=== PATIENT | male | born 1965 | race Caucasian/White ===

== ENCOUNTER 2016-08-02 10:35 | Day surgery (SDC) | payer BC ==
[2016-07-29 16:42] VITALS: BMI 25.7
[~2016-08-02 10:35] MED LIST: LACTATED RINGERS 1,000 ML IV SCH
[2016-08-02 11:08] VITALS: TEMP 97.7
[2016-08-02] MEDS ORDERED: PROPOFOL 10 MG/ML 20 ML VIAL IV ONE (12:31)
--- NOTE | 2016-08-02 13:02 | P.PCN ---
Date of Procedure: 08/02/16 Procedure(s) Performed: Procedure: Total colonoscopy. Preoperative diagnosis: Screening for neoplasia. Postoperative diagnosis: Mild sigmoid diverticulosis with no evidence of acute diverticulitis, strictures, polyps or cancer. Preparation: HalfLytely prep. Sedation: Was provided by anesthesia. Brief clinical history: The patient is a 50-year-old male who is referred for this evaluation for screening for neoplasia age being his risk factor. He has no abdominal complaints, bleeding or anemia. No family history of colon cancer. This would be his first colonoscopy. Procedure: With the patient on his left lateral decubitus position and after informed consent and adequate sedation, the perianal area was inspected and it did not show any fissures or fistulas. There were no masses felt on digital rectal examination. The Olympus CFQ 160L scope was then inserted in the rectum in the usual fashion and advanced to the cecum. There were a few diverticular orifices seen scattered in the sigmoid but I saw no evidence of acute diverticulitis or strictures. The mucosa appeared healthy. No polyps or tumors were seen or any other pathology. I retroflexed endoscope in the rectum before the endoscope was withdrawn. The patient tolerated the procedure well. Plan: The patient was reassured. Discussed dietary measures. He will follow up with you as planned and I recommended a repeat exam in 10 years.
[2016-08-02 13:25] VITALS: BP 116/83; PULSE 63; RESP 18
== END 2016-08-02 13:40 | disposition home or self-care (01) ==
LOC: ORWHC2ENDO 10:35
DX: Z12.11 Encounter for screening for malignant neoplasm of colon (principal); K57.30 Diverticulosis of large intestine without perforation or abscess without bleeding; E78.5 Hyperlipidemia, unspecified; J45.909 Unspecified asthma, uncomplicated; Z79.899 Other long term (current) drug therapy
CPT/HCPCS: J2704; G0121; 45378

== ENCOUNTER 2018-03-11 19:36 | Emergency (ER) | payer BC ==
[2018-03-11 19:45] VITALS: BP 157/87; PULSE 75; RESP 18; TEMP 98
--- NOTE | 2018-03-11 20:24 | ED ---
Eye Problem HPI - General Chief complaint: Eye Problems Stated complaint: Eye injury Time Seen by Provider: 03/11/18 19:49 Source: patient, RN notes reviewed, old records reviewed Mode of arrival: ambulatory Limitations: no limitations - History of Present Illness Initial comments: Dedrick is a pleasant 52-year-old male who presents emergency department today after playing with his grand daughter. He reports he was playing hadn't seek ran and fell onto the edge of the couch. Patient reports that he hit the right eye. He states that shortly afterwards he thought he noticed a crunching sound. Patient states he blew his nose due to a bloody nose in that it started to have a refill around the eye. Patient states that he has no pain with extraocular eye movements. Patient does report some pain and swelling within the eye as well as conjunctival hemorrhage. - Related Data Home Medications Medication Instructions Recorded Confirmed Multivitamin [Men's Multi-Vitamin] 1 each PO DAILY 07/29/16 07/29/16 [place]-3 Fatty Acids/Fish Oil [Fish 1 tab PO DAILY 07/29/16 07/29/16 Oil 1,000 mg Softgel] Pravastatin Sodium [Pravachol] 40 mg PO HS 07/29/16 08/02/16 Previous Rx's Medication Instructions Recorded Cephalexin [Keflex] 500 mg PO Q6HR #40 cap 03/11/18 Moxifloxacin [Vigamox 0.3%] 1 drop RIGHT EYE TID #1 bottle 03/11/18 Allergies Allergy/AdvReac Type Severity Reaction Status Date / Time No Known Allergies Allergy Verified 03/11/18 19:42 Review of Systems ROS Statement: Those systems with pertinent positive or pertinent negative responses have been documented in the HPI. ROS Other: All systems not noted in ROS Statement are negative. Past Medical History Past Medical History: Asthma Additional Past Medical History / Comment(s): Hx. of asthma as a child. Has back pain. History of Any Multi-Drug Resistant Organisms: None Reported Past Surgical History: Back Surgery, Orthopedic Surgery Past Anesthesia/Blood Transfusion Reactions: No Reported Reaction Past Psychological History: No Psychological Hx Reported Smoking Status: Never smoker Past Alcohol Use History: None Reported Past Drug Use History: None Reported - Past Family History Mother Family Medical History: No Reported History Sister(s) Family Medical History: Cancer Additional Family Medical History / Comment(s): Lung General Exam - General Exam Comments Initial Comments: Pleasant 52-year-old male. No significant distress. Limitations: no limitations General appearance: alert, in no apparent distress Head exam: Present: atraumatic, normocephalic, normal inspection Eye exam: Present: PERRL, EOMI, conjunctival injection (right), other ( Subcutaneous crepitus over the left periorbital region.). Absent: normal appearance (Conjunctival hemorrhage over the lateral aspect of the right eye.), scleral icterus, periorbital swelling Pupils: Present: normal accommodation ENT exam: Present: normal exam, mucous membranes moist, other (Tender to palpation over the right periorbital region.) Neck exam: Present: normal inspection. Absent: tenderness, meningismus, lymphadenopathy Respiratory exam: Present: normal lung sounds bilaterally. Absent: respiratory distress, wheezes, rales, rhonchi, stridor Cardiovascular Exam: Present: regular rate, normal rhythm, normal heart sounds. Absent: systolic murmur, diastolic murmur, rubs, gallop, clicks Extremities exam: Present: normal inspection, full ROM, normal capillary refill. Absent: tenderness, pedal edema, joint swelling, calf tenderness Back exam: Present: normal inspection Neurological exam: Present: alert, oriented X3, CN II-XII intact Psychiatric exam: Present: normal affect, normal mood Course Vital Signs 03/11/18 19:42 Temperature 98 F Pulse Rate 75 Respiratory 18 Rate Blood Pressure 157/87 O2 Sat by Pulse 98 Oximetry - Reevaluation(s) Reevaluation #1: 03/11/18 20:23 Dr. Luna is here to evaluate the Patient. Ocular pressure in the right eye is 26, left eye 16. He performed fluorescein eye exam and found a corneal abrasion over the right eye. Medical Decision Making - Medical Decision Making Patient 52 -year-old male states subcutaneous crepitus over the right periorbital region after falling. He hit the right eye on the edge of the couch playing hide and seek. He then blew his nose causing the crepitus. He has a corneal abrasion. Pressure in the right eye is 26. Left eye is 16. Patient was elevated by Dr. Wyatt. He recommended starting Patient on Vigamox eyedrops as well as Keflex for concern for blood fracture. He was given starter packs. CT does confirm a blood fracture with subcutaneous air. This occurred because Patient blew his nose. Discussed no further bleeding of the nose. He will follow-up with Dr. Luna tomorrow for evaluation for his abrasion. All questions answered return parameters were discussed. - Radiology Data Radiology results: report reviewed Intraorbital air bubbles consistent with acute blowout fracture of the medial wall of the right orbit. There is also blowout fracture of the median wall left orbit that may not be acute and there is preseptal soft tissue air on the right side consistent with laceration. Ethmoid and maxillary sinus mucosal thickening. Negative CT of the brain. Ethmoid and maxillary sinus mucosal thickening. Right orbital abnormalities with intraorbital air bubble seen. Soft tissue air or some anterior right orbit. Disposition Clinical Impression: Closed blow-out fracture of right orbit, Corneal abrasion Disposition: HOME SELF-CARE Condition: Good Instructions: Corneal Abrasion (ED) Additional Instructions: Follow up with primary care provider and ENT. Return to ED if any alarming signs or symptoms occur. Prescriptions: Cephalexin [Keflex] 500 mg PO Q6HR #40 cap Moxifloxacin [Vigamox 0.3%] 1 drop RIGHT EYE TID #1 bottle Is patient prescribed a controlled substance at d/c from ED?: No Referrals: Murphy Darling DO [Primary Care Provider] - 1-2 days Fabi Hay MD [STAFF PHYSICIAN] - 1-2 days Yimi Arora MD [STAFF PHYSICIAN] - 1-2 days Time of Disposition: 21:45
[2018-03-11] MEDS ORDERED: MOXIFLOXACIN HCL 0.5% DROPS 3 ML BTL RIGHT EYE STA (21:17)
[2018-03-11] MEDS ORDERED: CEPHALEXIN 500MG STARTER PACK 4 CAP BTL PO STA (21:17)
--- NOTE | 2018-03-11 21:18 | CT ---
EXAMINATION TYPE: CT brain wo con DATE OF EXAM: 03/11/2018 COMPARISON: None HISTORY: Right orbit swelling and pain. CT DLP: 1297.6 mGycm Automated exposure control for dose reduction was used. FINDINGS: Ventricles have normal size. There is no mass effect nor midline shift. There is no sign of intracran ial hemorrhage. The calvarium is intact. There is mucosal thickening in the ethmoid air cells. Right- sided intraorbital air bubbles are seen. There is soft tissue air also anterior to the right orbit. IMPRESSION: NEGATIVE CT SCAN OF THE BRAIN. ETHMOID AND MAXILLARY SINUS MUCOSAL THICKENING.. Right orbital abnorma lities as above.
--- NOTE | 2018-03-11 21:22 | CT ---
EXAMINATION TYPE: CT facial bones wo con DATE OF EXAM: 03/11/2018 COMPARISON: None HISTORY: Right orbit swelling and pain. CT DLP: 1297.6 mGycm Automated exposure control for dose reduction was used. TECHNIQUE: CT scan of the sinuses is performed without contrast, axial images are obtained, coronal r eformatted images are also reviewed. FINDINGS: The mandibular ring intact. Temporomandibular joints appear normal. There is some mucosal t hickening in both maxillary sinuses. Mucosal thickening is seen in the ethmoid air cells. There is so ft tissue air in the preseptal periorbital soft tissues on the right side. There are also small air b ubbles within the right side retro-orbital tissues. There is blowout fracture of the medial wall of b oth orbits. There is fat herniation into the ethmoid sinuses bilaterally. The zygomatic arches are intact. Frontal sinuses appear normal. The globes are symmetric. IMPRESSION: There is intraorbital air bubbles consistent with acute blowout fracture medial wall of t he right orbit. There is also a blowout fracture medial wall left orbit that may not be acute. There is preseptal soft tissue air on the right side consistent with laceration. Ethmoid and maxillary sinu s mucosal thickening.
--- NOTE | 2018-03-11 23:35 | CONS ---
CONSULTATION CHIEF COMPLAINT: The patient was playing with his granddaughter. He fell on the edge of a piece of furniture and injured his right eye. This happened 2 hours ago. MEDICAL HISTORY: Reviewed. Patient denies history of diabetes, blood pressure or any previous accidents. The patient denies any loss of vision but admits to eye pain after the accident. EXAMINATION: Vision 20/20 in both eyes. Extraocular motility full. Lids normal with mild puffiness at the medial canthus. Pupils equal and reactive. The right subconjunctival hemorrhage measuring 5 mm in the outer canthus. Right corneal abrasion measuring 4 mm involving the superior part of the right cornea. I see no hyphema. Vitreous normal. Retina dilated exam with indirect was normal. No tears, no bleeding. The patient is sent to the CT scan of the orbit to rule out ethmoidal fracture. ASSESSMENT: 1. Right corneal abrasion. 2. Right subconjunctival hemorrhage. 3. Right possible ethmoidal sinus fracture. PLAN: The patient is sent for CT scan for CT orbits. I started the patient on Keflex 250 mg every 6 hours for 10 days and also on Vigamox 1 drop 4 times a day for the right eye. I will re-examine him tomorrow at 1:00 pm in our office in [place]. MMATIFL / IJN: [id number] /
== END 2018-03-11 22:00 | disposition home or self-care (01) ==
LOC: EC 19:36
DX: S02.31XA Fracture of orbital floor, right side, initial encounter for closed fracture (principal); S05.01XA Injury of conjunctiva and corneal abrasion without foreign body, right eye, initial encounter; S02.32XA Fracture of orbital floor, left side, initial encounter for closed fracture; H11.31 Conjunctival hemorrhage, right eye; J34.89 Other specified disorders of nose and nasal sinuses; Z79.899 Other long term (current) drug therapy; Z87.39 Personal history of other diseases of the musculoskeletal system and connective tissue; Z98.890 Other specified postprocedural states; W01.190A Fall on same level from slipping, tripping and stumbling with subsequent striking against furniture, initial encounter; Y93.6A Activity, physical games generally associated with school recess, summer camp and children; Y92.009 Unspecified place in unspecified non-institutional (private) residence as the place of occurrence of the external cause
CPT/HCPCS: 70450; 70486; 99284